=== PATIENT | female | born 1960 ===

== ENCOUNTER → 2023-07-16 08:08 | Outpatient (CLI) | payer MEDICARE, OTHER, SELFPAY ==
--- NOTE | ~2023-07-16 | MR_ITS ---
EXAMINATION: MR ankle RT wo con, MR foot RT wo con DATE: 07/16/2023 09:16 INDICATION: Right foot and ankle pain. TECHNIQUE: 1. Magnetic resonance imaging (MRI) of the right ankle/hindfoot was performed without intravenous con trast. Sequences included sagittal, coronal, and axial PD-weighted FSE and PD-weighted FS FSE. 2. MRI of the right fore/mid foot was performed without intravenous contrast. Sequences included sagi ttal T1-weighted FSE, sagittal fluid sensitive FSE STIR, coronal PD-weighted FS FSE, coronal T1-weigh delmy FSE, axial PD-weighted FS FSE, and axial PD-weighted FSE. COMPARISON: None. FINDINGS: Medial ankle ligaments: Couple small heterotopic ossicles along the deep deltoid ligament likely sequela of chronic sprain. T he anterior superficial deltoid ligament appears either absent or markedly attenuated without surroun ding edema consistent with sequela of chronic sprain. The spring ligament complex is normal. Lateral ankle ligaments: The anterior and posterior inferior tibiofibular, anterior and posterior talofibular as well as the c alcaneofibular ligaments are normal. Tendons: Minimal distal Achilles enthesopathy. Small amount of fluid extending along the normal-appearing tibi jatin posterior tendon consistent with mild tenosynovitis. The medial and lateral flexor as well as th e extensor tendons of the foot/ankle are normal. Plantar fascia: There is mild edema in the fat pad plantar to the calcaneal origin of the plantar aponeurosis. There is a moderate-sized enthesophyte at the origin of the plantar aponeurosis. The aponeurosis itself fredi ears normal. Bones/other: There appears to be mild pes planus however this would be more accurately assessed with weightbearing imaging. No fracture or pathologic marrow replacing process. Mild osteoarthritis at the ankle joint with small region of deep chondral ulceration with minimal underlying cortical irregularity and mild subarticular edema-like signal change at the posterior aspect of the tibial plafond and. Additional m ild polyarticular osteoarthritis at the first metatarsophalangeal and a few tarsometatarsal and inter phalangeal joints. No erosions to suggest inflammatory arthritis. The Lisfranc ligament complex and t he collateral ligament complex at the metatarsophalangeal and interphalangeal joints are normal. Intr insic musculature of the foot is unremarkable. Fluid: Physiologic amount fluid in the joint spaces. IMPRESSION: 1. Focal edema in the fat pad plantar to the calcaneal origin of the plantar aponeurosis. Differentia l would include with heel fat pad syndrome, mild plantar fasciitis more direct posttraumatic contusio n. 2. Chronic sprains of the deep deltoid ligament and anterior superficial deltoid ligament. 3. Suggestion of pes planus although this would be more accurately assessed with weightbearing radiog raphs. 4. 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 Reviewed, dictated and finalized at location A. [employer]ICE IMPRESSION: 1. Focal edema in the fat pad plantar to the calcaneal origin of the plantar ap oneurosis. Differential would include with heel fat pad syndrome, mild plantar fasciitis more direct posttraumatic contusion. 2. Chronic sprains of the deep deltoid ligament and anterior superficial deltoi d ligament. 3. Suggestion of pes planus although this would be more accurately assessed wit h weightbearing radiographs. 4. 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
== END ==
PROVIDERS: PCP Emergency Medicine; Visit Provider Podiatrist Foot & Ankle Surgery
DX: M19.071 Primary osteoarthritis, right ankle and foot (principal); S93.421A Sprain of deltoid ligament of right ankle, initial encounter; X58.XXXA Exposure to other specified factors, initial encounter
CPT/HCPCS: 73718; 73721